=== PATIENT | male | born 1955 | race Hispanic/Latino ===

== ENCOUNTER → 2018-02-23 | Outpatient (CLI) | payer OTHER ==
[~2018-02-23] MED LIST: ASPI-1181 PO; CHOL100040 PO; FENO160T16 PO; LISI10TA7 PO; METF-446 PO; METO25TA6 PO; OMEG-125 PO; PRAS10TA6 PO; PRAV10TA39 PO; PROBIOTIC 10 PO; UBID100C10 PO; ZOLP10TA6 PO; [UNRECOGNIZED DRUG - OTHER]; [UNRECOGNIZED DRUG - OTHER] PO
== END | disposition home or self-care (01) ==
LOC: OIH 09:30
PROVIDERS: ATTEND Family Medicine
DX: M25.561 Pain in right knee (principal)
CPT/HCPCS: 73560

== ENCOUNTER → 2019-01-07 | Outpatient (CLI) | payer BC ==
[2019-01-07 13:39] LABS: CREATININE 1.1 mg/dL (0.5-1.5)
== END | disposition home or self-care (01) ==
LOC: LAB 12:55
PROVIDERS: ATTEND Otolaryngology Plastic Surgery within the Head & Neck
DX: H90.5 Unspecified sensorineural hearing loss (principal)
CPT/HCPCS: 36415; 82565; 84520

== ENCOUNTER → 2019-01-14 | Outpatient (CLI) | payer BC ==
[~2019-01-14] MED LIST changes: +GADODIAMIDE 10 MMOL/20 ML VIAL IV ONE
== END | disposition home or self-care (01) ==
LOC: RAH 09:10
PROVIDERS: ATTEND Otolaryngology Plastic Surgery within the Head & Neck
DX: J32.0 Chronic maxillary sinusitis (principal); H93.A3 Pulsatile tinnitus, bilateral
CPT/HCPCS: 70553 ×2; A9579

== ENCOUNTER 2020-12-01 14:30 | Observation (INO) | payer MEDICARE ==
[~2020-12-01] VITALS: Ht 180.3 cm; Wt 101.6 kg
[~2020-12-01 14:30] MED LIST changes: -ASPI-1181 PO; +ASPI-1443 PO; -GADODIAMIDE 10 MMOL/20 ML VIAL IV ONE; +LISI10TA24 PO; -LISI10TA7 PO
[2020-12-01 15:30] LABS: HEMATOCRIT 23.4 % (42-54); MEAN CORPUSCULAR HEMOGLOBIN 30.2 pg (27.0-33.0); MEAN CORPUSCULAR HGB CONC 36.3 g/dL (32.0-36.0); MEAN CORPUSCULAR VOLUME 83.3 fL (79-99); MONOCYTES % (AUTO) 22.8 % (3.0-13.0); NEUTROPHILS % (AUTO) 24.9 % (40.0-77.0); NUCLEATED RED BLOOD CELLS 2.7 % (0.0-0.19); PLATELET COUNT (AUTO) 15 K/uL (130-400); RED BLOOD CELL COUNT(AUTO) 2.81 MIL/uL (4.50-6.20); RED CELL DISTRIBUTION WIDTH 12.5 % (11.0-15.5); WHITE BLOOD COUNT (AUTO) 1.5 K/uL (4.8-10.8)
[2020-12-01 15:40] LABS: CREATININE 0.9 mg/dL (0.5-1.5); POTASSIUM 4.1 mmol/L (3.5-5.1)
[2020-12-01 15:44] LABS: ALBUMIN 3.4 g/dL (3.5-5.0); BILIRUBIN,TOTAL 0.8 mg/dL (0.2-1.0)
[2020-12-01] MEDS ORDERED: DEXAMETHASONE SOD PHOSPHATE 4 MG/ML 1ML VIAL IVP SCH (17:00)
[2020-12-01] MEDS ORDERED: ONDANSETRON 4MG INJ IVP PRN (17:00)
[2020-12-01] MEDS ORDERED: ACETAMINOPHEN 325 MG TAB PO PRN ×2 (17:00→20:00)
[2020-12-01] MEDS ORDERED: LACTULOSE 20 GM/30 ML UDCUP PO PRN (18:30)
[2020-12-01] MEDS ORDERED: DOCUSATE SODIUM 100 MG CAP PO SCH (18:30)
[2020-12-01] MEDS ORDERED: LABETALOL 20MG SYG IV PRN (19:30)
[2020-12-01] MEDS ORDERED: DiphenhydrAMINE HCL 50 MG/ML VIAL IV PRN (20:00)
[2020-12-01] MEDS ORDERED: NITROGLYCERIN 0.4 MG SL TAB SL PRN (20:00)
[2020-12-01] MEDS ORDERED: BENZONATATE 100 MG CAPSULE PO PRN (20:00)
[2020-12-01] MEDS ORDERED: METOPROLOL TARTRATE 25 MG TAB PO SCH (21:00)
[2020-12-01 21:01] VITALS: BP 155/81
[2020-12-01] MEDS: PANTOPRAZOLE 40 MG/VIAL IVP SCH (21:15)
[2020-12-01] MEDS: ALPRAZOLAM 1 MG TAB PO SCH (22:00)
[2020-12-01 22:51] VITALS: BP 144/75
[2020-12-01] MEDS ORDERED: ALPRAZOLAM 0.25 MG TABLET ONE (23:26)
[2020-12-02] VITALS (11 sets, daily range): BP systolic 106–151; BP diastolic 62–84
[2020-12-02] MEDS ORDERED: METF-526 PO
[2020-12-02] MEDS ORDERED: METO-408 PO
[2020-12-02] MEDS ORDERED: SEMA1PEN3 SQ
[2020-12-02] MEDS ORDERED: LISI2.5T13 PO (00:03)
[2020-12-02] MEDS ORDERED: PSYL1000 MC (00:33)
[2020-12-02] MEDS ORDERED: FISH1CAP63 PO (00:33)
[2020-12-02] MEDS ORDERED: BEET ROOT PO (00:33)
[2020-12-02] MEDS ORDERED: BETA1TAB18 PO (00:33)
[2020-12-02] MEDS ORDERED: MILK175C5 PO (00:33)
[2020-12-02] MEDS ORDERED: VITAD50000 PO (00:33)
[2020-12-02] MEDS ORDERED: PRAS25CA9 PO (00:33)
[2020-12-02] MEDS ORDERED: CYAN10007 IJ (00:33)
[2020-12-02] MEDS ORDERED: TURM500C9 PO (00:33)
[2020-12-02] MEDS ORDERED: CETI10CA5 PO (00:33)
[2020-12-02] MEDS ORDERED: THIO300C PO (00:33)
[2020-12-02] MEDS ORDERED: MULT-1367 PO (00:33)
[2020-12-02] MEDS ORDERED: POLY17PO4 PO (00:33)
[2020-12-02] MEDS ORDERED: BLACK ELDERBERRY PO (00:33)
[2020-12-02] MEDS ORDERED: CHIA SEEDS PO (00:33)
[2020-12-02] MEDS ORDERED: ASCO500W7 PO (00:33)
[2020-12-02] MEDS ORDERED: PRAV40TA3 PO (00:33)
[2020-12-02] MEDS ORDERED: BACI1TAB8 PO (00:33)
[2020-12-02] MEDS ORDERED: [UNRECOGNIZED DRUG - OTHER] PO (00:33)
[2020-12-02] MEDS ORDERED: POLYETHYLENE GLYCOL 3350 17 GM POWD.PACK PO PRN (03:00)
[2020-12-02 07:47] LABS: HEMATOCRIT 24.7 % (42-54); MEAN CORPUSCULAR HEMOGLOBIN 30.3 pg (27.0-33.0); MEAN CORPUSCULAR HGB CONC 36.4 g/dL (32.0-36.0); MEAN CORPUSCULAR VOLUME 83.2 fL (79-99); NUCLEATED RED BLOOD CELLS 3.8 % (0.0-0.19); RED BLOOD CELL COUNT(AUTO) 2.97 MIL/uL (4.50-6.20); RED CELL DISTRIBUTION WIDTH 12.5 % (11.0-15.5); WHITE BLOOD COUNT (AUTO) 1.6 K/uL (4.8-10.8)
[2020-12-02 07:59] LABS: CREATININE 0.9 mg/dL (0.5-1.5); POTASSIUM 4.7 mmol/L (3.5-5.1)
[2020-12-02 08:02] LABS: INR 1.1 (0.85-1.15); PROTHROMBIN TIME 11.9 SEC (9.6-11.6)
[2020-12-02 08:03] LABS: PARTIAL THROMBOPLASTIN TIME 26.9 SEC (26.3-35.5)
[2020-12-02] MEDS: FERROUS SULFATE 325 MG TABLET.DR ONE ×2 (08:54→08:55)
[2020-12-02] MEDS: PANTOPRAZOLE 40 MG/VIAL IVP SCH (08:54)
[2020-12-02] MEDS: FERROUS SULFATE 325 MG TABLET.DR PO SCH ×3 (08:55→20:26)
[2020-12-02] MEDS ORDERED: MULTIVITAMIN TABLET PO SCH (09:00)
[2020-12-02] MEDS ORDERED: CETIRIZINE HCL 5 MG TABLET PO SCH (09:00)
[2020-12-02] MEDS ORDERED: METOPROLOL SUCCINATE 50 MG TAB.SR.24H PO SCH (09:00)
[2020-12-02] MEDS ORDERED: ALPRAZOLAM 1 MG TAB PO SCH (12:00)
[2020-12-02 13:35] LABS: EOSINOPHILS % (MANUAL) 3 % (1-6); LYMPHOCYTES % (MANUAL) 43 % (22-44); MONOCYTES % (MANUAL) 17 % (2-9); PLATELET MORPHOLOGY COMMENT MARKED DECREASE; REACTIVE LYMPHOCYTES 3 % (0-0); SEGMENTED NEUTROPHILS % 33 % (40-70)
[2020-12-02] MEDS ORDERED: LISINOPRIL 2.5 MG TABLET PO SCH (15:00)
[2020-12-02] MEDS ORDERED: INSULIN HUMULIN R 100 UNIT/ML 3ML SQ SCH (21:00)
[2020-12-02] MEDS: ALPRAZOLAM 1 MG TAB PO SCH (22:00)
[2020-12-03 04:15] LABS: HEMATOCRIT 21.5 % (42-54); MEAN CORPUSCULAR HEMOGLOBIN 29.8 pg (27.0-33.0); MEAN CORPUSCULAR HGB CONC 35.8 g/dL (32.0-36.0); MEAN CORPUSCULAR VOLUME 83.3 fL (79-99); NUCLEATED RED BLOOD CELLS 3.7 % (0.0-0.19); RED BLOOD CELL COUNT(AUTO) 2.58 MIL/uL (4.50-6.20); RED CELL DISTRIBUTION WIDTH 12.8 % (11.0-15.5); WHITE BLOOD COUNT (AUTO) 1.6 K/uL (4.8-10.8)
[2020-12-03 04:18] LABS: PLATELET COUNT (AUTO) 29 K/uL (130-400)
[2020-12-03 04:27] LABS: ALBUMIN 3.2 g/dL (3.5-5.0); BILIRUBIN,TOTAL 0.5 mg/dL (0.2-1.0); CREATININE 1.3 mg/dL (0.5-1.5); POTASSIUM 3.7 mmol/L (3.5-5.1); TOTAL PROTEIN, SERUM 6.5 g/dL (6.0-8.3)
[2020-12-03 04:30] LABS: INR 1.12 (0.85-1.15); PROTHROMBIN TIME 12.1 SEC (9.6-11.6)
[2020-12-03 04:31] LABS: PARTIAL THROMBOPLASTIN TIME 26.5 SEC (26.3-35.5)
[2020-12-03 05:12] LABS: D-DIMER 1568 ng/mL (0-500)
[2020-12-03 06:10] LABS: FIBRINOGEN > 450 mg/dL (180-350)
== END 2020-12-03 05:45 | disposition left against medical advice (07) ==
LOC: EDH 14:30 → EDHIP 16:40 → 3AH 12-02 09:46
PROVIDERS: ADMIT Internal Medicine Critical Care Medicine; ATTEND Internal Medicine Critical Care Medicine
DX: D61.818 Other pancytopenia (principal); T50.905A Adverse effect of unspecified drugs, medicaments and biological substances, initial encounter; E11.9 Type 2 diabetes mellitus without complications; I10 Essential (primary) hypertension; I25.10 Atherosclerotic heart disease of native coronary artery without angina pectoris; D69.59 Other secondary thrombocytopenia; E66.9 Obesity, unspecified; E78.00 Pure hypercholesterolemia, unspecified; Z68.33 Body mass index [BMI] 33.0-33.9, adult; Z95.5 Presence of coronary angioplasty implant and graft; Z79.82 Long term (current) use of aspirin; Z79.84 Long term (current) use of oral hypoglycemic drugs; Z79.899 Other long term (current) drug therapy; Z98.890 Other specified postprocedural states
CPT/HCPCS: 36415 ×3; 71046; 80048; 80053 ×2; 82150; 82607; 82746; 82948 ×3; 83615 ×2; 83690; 83880; 84484; 85025; 85027 ×2; 85378; 85384; 85610 ×2; 85730 ×2; 86701; 86900; 86901; 87390; 93005; 96374; 96375; 96376; 99285; C9113 ×2; G0378 ×37; J1100; P9034